=== PATIENT | female | born 1965 | race Caucasian/White ===

== ENCOUNTER 2017-07-25 21:52 | Emergency (ER) | payer OTHER ==
[~2017-07-25] VITALS: Ht 165.1 cm; Wt 123.2 kg
[2017-07-26] MEDS ORDERED: MOTRIN600 MG PO (00:46)
[2017-07-26] MEDS ORDERED: FLEXERIL10 MG PO (00:46)
[2017-07-26 01:35] VITALS: BP 146/89
== END 2017-07-26 01:57 | disposition home or self-care (01) ==
LOC: EME 21:52
DX: S46.911A Strain of unspecified muscle, fascia and tendon at shoulder and upper arm level, right arm, initial encounter (principal); V43.52XA Car driver injured in collision with other type car in traffic accident, initial encounter; Y92.410 Unspecified street and highway as the place of occurrence of the external cause; D68.51 Activated protein C resistance; Z86.718 Personal history of other venous thrombosis and embolism
CPT/HCPCS: 73030; 99281; 99283; J1885